=== PATIENT | male | born 1990 | race African-American/Black ===

== ENCOUNTER → 2018-05-15 | Day surgery (SDC) | payer BC ==
[~2018-05-15] MED LIST: CEFTRIAXONE SOD 1 GM VIAL ONE; DEXAMETHASONE SOD PHOS INJ 4 MG/ML VIAL ONE; FENTANYL CITRATE/PF 100MCG/2 ML INJ ONE; KETOROLAC TROMETHAMINE 30 MG/ML VIAL ONE; LIDOCAINE HCL 2% LOCAL INJ 5 ML SDV VIAL INJ ONE; MIDAZOLAM HCL 2 MG/2 ML VIAL ONE; ONDANSETRON HCL INJ 2 MG/ML VIAL ONE; PROPOFOL IV EMULSION 10 MG/ML 20 ML VIAL ONE; SEVOFLURANE INHAL SOLN 250 ML PEN BTL ONE
--- NOTE | 2018-05-15 14:48 | Operative Report ---
DATE OF PROCEDURE: May 15, 2018 PREOPERATIVE DIAGNOSIS: Bilateral vasectomy for sterilization. POSTOPERATIVE DIAGNOSES 1. Bilateral vasectomy for sterilization. 2. Left hydrocele. OPERATIONS PERFORMED 1. Bilateral vasectomy. 2. Left hydrocelectomy. ANESTHETIC: General. Mr. Sanchez is a 28-year-old male who presented for bilateral vasectomy as a means of sterilization. The operative procedure was explained in detail to the patient including the risks of surgery including the risks of infection, bleeding, chronic testicular pain, recanalization of the vas and appearance of sperm and ultimate , and he understood all these. He was also instructed on no sexual activity for the next 3 to 4 weeks and to have sexual activity after that that is controlled and have to continue on oral contraceptive measures that he and his are using until a semen analysis is obtained in 2 months. He understood all these. This patient was placed on the table in the supine position and was prepped and draped in a sterile manner. A longitudinal incision over the anterolateral border of the right hemiscrotum, incising the skin and the dartos muscle. The spermatic cord was isolated. The cord structures were incised. The vas was isolated, and a half-inch segment was removed. Each end of the incised vas was cauterized and tied x2 using 3-0 black silk. Hemostasis was obtained all through and was very adequate using the electrocautery. The spermatic cord was then delivered inside the scrotal sac. The dartos muscle approximated using 4-0 Vicryl, and the skin was approximated interruptedly using 4-0 Vicryl. Attention was now directed to the left vasectomy. A similar incision was made, but there was a large hydrocele and the tunica vaginalis was incised and the spermatic cord was delivered outside the wound. The spermatic cord covering was now incised longitudinally, and the vas was isolated. A half-inch segment of the left vas was removed. Each end of the incised vas was tied x2 using 4-0 black silk, and the end of the vas was cauterized on each side. Hemostasis was obtained all through and was very adequate. Attention was directed to the hydrocelectomy, and the spermatic cord and the testicle were delivered outside the scrotal sac. The hydrocele sac was incised and bottlenecked. The free ends were approximated continuously using 4-0 Vicryl. The testicle and the cord were delivered inside the scrotal sac. The dartos muscle was approximated continuously using 4-0 Vicryl, and the skin was approximated interruptedly using 4-0 Vicryl. A sterile dressing was applied. Patient tolerated the procedure well and was taken to the recovery room in satisfactory condition. Plans for this patient are to be placed on Augmentin 500 mg 1 three times a day for 10 days. Ultracet tablet 1 every 4 to 6 hours p.r.n. and was given 40. Ice packs were applied. He is to return to the office in 4 weeks. Job#: [id number]
[2018-05-15 14:55] VITALS: BP 125/73
== END | disposition home or self-care (01) ==
LOC: OR 09:57
PROVIDERS: ATTEND Specialist
DX: Z30.2 Encounter for sterilization (principal); N43.3 Hydrocele, unspecified
CPT/HCPCS: 55250; 55500; 88302; J0696; J2250; J1100; J1885; J2001; J2405